=== PATIENT | female | born 1950 | race Caucasian/White ===

== ENCOUNTER 2020-06-17 08:25 | Observation (INO) ==
[2020-06-17] MEDS ORDERED: Aspirin 81 MG TAB.CHEW PO ONE (08:30)
[2020-06-17 09:11] LABS: Basophils % 0.5 %; Eosinophils # 0.1 K/mcL (0.0-0.6); Eosinophils % 2.2 %; Hematocrit 40.8 % (35.3-44.9); Hemoglobin 13.5 g/dL (11.5-15.4); Immature Granulocytes % 0.5 % (0-4); Lymphocytes # 1.9 K/mcL (0.6-4.6); Lymphocytes % 34.8 %; Mean Corpuscular HGB Conc 33.1 g/dL (31.6-35.5); Mean Corpuscular Hemoglobin 28.1 pg (28.0-33.3); Mean Corpuscular Volume 84.8 fL (83.0-100.0); Mean Platelet Volume 9.3 fL (9.4-12.4); Monocytes # 0.5 K/mcL (0.0-1.3); Monocytes % 8.3 %; Platelet Count 255 K/mcL (140-400); Red Blood Count 4.81 M/mcL (3.82-4.97); Red Cell Distribution Width 13.7 % (11.5-14.5); Segmented Neutrophils % 53.7 %; White Blood Count 5.6 K/mcL (4.3-11.1)
[2020-06-17 09:20] LABS: Prothrombin Time 11.7 Seconds (9.4-12.1)
[2020-06-17 09:23] LABS: Activated Partial Thrombo Time 28.4 Seconds (26.0-36.0)
[2020-06-17 09:30] LABS: Albumin 4.4 g/dL (3.5-5.7); Albumin/Globulin Ratio 1.8 (1.1-2.2); Bilirubin,Indirect 0.6 mg/dL (0.0-1.0); Bilirubin,Total 0.6 mg/dL (0.3-1.0); Globulin 2.5 g/dL (2.4-3.5); Total Protein 6.9 g/dL (6.4-8.9)
[2020-06-17 09:32] LABS: BUN/Creatinine Ratio 13 (6-26); Blood Urea Nitrogen 12 mg/dL (8-23); Calcium 9.3 mg/dL (8.6-10.3); Carbon Dioxide 22 mEq/L (23-29); Chloride 107 mEq/L (98-107); Glucose 114 mg/dL (70-105); Osmolality,Calculated 287 (280-300); Potassium 4.1 mEq/L (3.5-5.1); Sodium 138 mEq/L (136-145); Troponin I < 0.03 ng/mL (< 0.04); eGFR For African Americans > 60 (> 60); eGFR For Non-African Americans 59 (> 60)
[2020-06-17 10:13] LABS: Bilirubin,Urine Negative (Negative); Blood,Urine Negative (Negative); Clarity,Urine Clear (Clear); Color,Urine Colorless (Yellow); Glucose,Urine (UA) Normal (Normal); Ketones,Urine Negative (Negative); Leukocyte Esterase,Urine Negative (Negative); Nitrite,Urine Negative (Negative); PH,Urine 6.5 pH Units (5.0-8.0); Protein,Urine Negative (Neg-Trace); Specific Gravity,Urine 1.008 (1.010-1.025); Urobilinogen,Urine Normal (Normal)
[2020-06-17] MEDS ORDERED: Isovue-370 500 ML BOTTLE IVP ONE (10:58)
[2020-06-17 11:07] LABS: Adenovirus Not Detected (Not Detect); Bordetella Pertussis Not Detected (Not Detect); Chlamydophila pneumoniae Not Detected (Not Detect); Coronavirus 229E Not Detected (Not Detect); Coronavirus HKU1 Not Detected (Not Detect); Coronavirus NL63 Not Detected (Not Detect); Coronavirus OC43 Not Detected (Not Detect); Human Metapneumovirus Not Detected (Not Detect); Human Rhinovirus/Enterovirus Not Detected (Not Detect); Influenza A Subtype 2009 H1 Not Detected (Not Detect); Influenza B Not Detected (Not Detect); Mycoplasma pneumoniae Not Detected (Not Detect); Parainfluenza Virus 1 Not Detected (Not Detect); Parainfluenza Virus 2 Not Detected (Not Detect); Parainfluenza Virus 3 Not Detected (Not Detect); Parainfluenza Virus 4 Not Detected (Not Detect); Respiratory Syncytial Virus Not Detected (Not Detect); SARS-CoV-2 Not Detected (Not Detect)
[2020-06-17] MEDS ORDERED: Nitroglycerin 1 INCH/GM PACKET TP ONE (11:55)
[2020-06-17] MEDS ORDERED: Naloxone 0.4 MG/ML INJ IVP PRN (12:06)
[2020-06-17] MEDS ORDERED: Perflutren Lipid Microsphere 1.3 ML in 0.9 % Sodium Chloride 8.7 ML IVP PRN (12:08)
[2020-06-17] MEDS: lisinopriL 20 MG TABLET PO SCH (13:34)
[2020-06-17] MEDS: hydroCHLOROthiazide 25 MG TABLET PO SCH (18:46)
[2020-06-17] MEDS: *HR* Heparin 5,000 UNIT/ML VIAL SQ SCH (18:46)
[2020-06-17] MEDS: Acetaminophen 325 MG TABLET PO PRN (20:28)
[2020-06-18] MEDS: *HR* Heparin 5,000 UNIT/ML VIAL SQ SCH (05:14)
[2020-06-18] MEDS ORDERED: Regadenoson 0.4 MG/5 ML SYRINGE IVP ONE (06:28)
[2020-06-18 06:30] LABS: Chol/HDL Ratio 4.1 (0-4.9)
[2020-06-18 08:29] LABS: Estimated Average Glucose 128 mg/dl; Hemoglobin A1C 6.1 %
[2020-06-18] MEDS ORDERED: Aspirin 81 MG TAB.CHEW PO SCH (09:00)
[2020-06-18] MEDS ORDERED: lisinopriL 20 MG TABLET PO SCH (09:00)
[2020-06-18] MEDS: hydroCHLOROthiazide 25 MG TABLET PO SCH (09:55)
[2020-06-18] MEDS: lisinopriL 20 MG TABLET PO SCH (09:55)
[2020-06-18] MEDS: Acetaminophen 325 MG TABLET PO PRN (10:00)
[2020-06-18] MEDS ORDERED: lisinopriL 20 MG TABLET PO ONE (13:31)
[2020-06-18 15:49] VITALS: BP 166/66
== END 2020-06-18 16:27 | disposition home or self-care (01) ==
LOC: 3BNU 08:25 → EMEROOARM 08:25 → SUATTDRO 12:43 → 3BNU 13:38
PROVIDERS: ADMIT Internal Medicine; ATTEND Internal Medicine

== ENCOUNTER 2020-06-21 18:48 | Observation (INO) ==
[2020-06-21] MEDS ORDERED: Isovue-370 500 ML BOTTLE IVP ONE (19:06)
[2020-06-21 19:18] LABS: Basophils # 0.1 K/mcL (0.0-0.2); Basophils % 0.5 %; Eosinophils # 0.1 K/mcL (0.0-0.6); Hemoglobin 14.4 g/dL (11.5-15.4); Immature Granulocytes % 0.5 % (0-4); Lymphocytes # 2.9 K/mcL (0.6-4.6); Lymphocytes % 31.2 %; Mean Corpuscular HGB Conc 32.7 g/dL (31.6-35.5); Mean Corpuscular Hemoglobin 27.8 pg (28.0-33.3); Mean Corpuscular Volume 84.9 fL (83.0-100.0); Mean Platelet Volume 9.7 fL (9.4-12.4); Monocytes # 0.7 K/mcL (0.0-1.3); Monocytes % 7.3 %; Neutrophils # 5.5 K/mcL (1.6-8.9); Platelet Count 319 K/mcL (140-400); Red Blood Count 5.18 M/mcL (3.82-4.97); Red Cell Distribution Width 13.5 % (11.5-14.5); Segmented Neutrophils % 59.5 %
[2020-06-21 19:19] LABS: White Blood Count 9.3 K/mcL (4.3-11.1)
[2020-06-21 19:32] LABS: BUN/Creatinine Ratio 20 (6-26); Blood Urea Nitrogen 22 mg/dL (8-23); Calcium 9.6 mg/dL (8.6-10.3); Carbon Dioxide 21 mEq/L (23-29); Chloride 103 mEq/L (98-107); Glucose 113 mg/dL (70-105); Osmolality,Calculated 286 (280-300); Sodium 136 mEq/L (136-145); eGFR For African Americans 58 (> 60); eGFR For Non-African Americans 48 (> 60)
[2020-06-21 19:33] LABS: Troponin I < 0.03 ng/mL (< 0.04)
[2020-06-21] MEDS ORDERED: *HR* FentaNYL (PF) 100 MCG/2 ML VIAL IVP ONE (20:54)
[2020-06-22] MEDS ORDERED: Naloxone 0.4 MG/ML INJ IVP PRN (07:56)
[2020-06-22] MEDS ORDERED: Gadolinium Contrast Agent (WT Based) IV PRN ×2 (07:57→07:59)
[2020-06-22] MEDS ORDERED: Cholecalciferol (D-3) 1,000 UNIT (25MCG) TABLET PO SCH (09:00)
[2020-06-22] MEDS ORDERED: hydroCHLOROthiazide 25 MG TABLET PO SCH (09:00)
[2020-06-22] MEDS ORDERED: lisinopriL 20 MG TABLET PO SCH (09:00)
[2020-06-22] MEDS ORDERED: Aspirin 81 MG TAB.CHEW PO SCH (09:00)
[2020-06-22] MEDS ORDERED: 0.9 % Sodium Chloride 1,000 ML IVC SCH (09:45)
[2020-06-22] MEDS ORDERED: Acetaminophen 325 MG TABLET PO PRN (11:46)
[2020-06-22] MEDS: *HR* Heparin 5,000 UNIT/ML VIAL SQ SCH ×2 (13:18→21:44)
[2020-06-22] MEDS: Gabapentin 100 MG CAPSULE PO SCH ×2 (15:34→21:43)
[2020-06-22] MEDS ORDERED: Ketorolac 15 MG/ML VIAL IVP ONE (17:15)
[2020-06-22] MEDS ORDERED: Dexamethasone 4 MG/ML VIAL IVP ONE (17:15)
[2020-06-22 19:33] VITALS: BP 132/67
== END 2020-06-22 22:58 | disposition short-term general hospital (02) ==
LOC: EMEROOARM 18:48 → 3ANU 18:48
PROVIDERS: ADMIT Family Medicine; ATTEND Family Medicine